=== PATIENT | female | born 1990 | race Asian ===

== ENCOUNTER 2018-12-13 20:50 | Emergency (ER) | payer BC, OTHER ==
[2018-12-13] MEDS: ONDANSETRON 4 MG INJ IV (21:08)
[2018-12-13] MEDS: HYDROmorphONE 2 MG/ML SYG IV (21:08)
== END 2018-12-13 23:48 | disposition home or self-care (01) ==
LOC: E/R 23:48
DX: S93.432A Sprain of tibiofibular ligament of left ankle, initial encounter (principal); S20.219A Contusion of unspecified front wall of thorax, initial encounter; V49.59XA Passenger injured in collision with other motor vehicles in traffic accident, initial encounter
CPT/HCPCS: 29515; 71045; 73590; 73610; 84703; 96374; 96375; 99284-25